=== PATIENT | male | born 1985 | race Caucasian/White ===

== ENCOUNTER 2022-08-17 00:08 | Emergency (ER) | payer MEDICAID, SELFPAY ==
[2022-08-17 00:19] VITALS: BP 129/89; PULSE 63; RESP 17; TEMP 36.7; O2SAT 98; BMI 29.0
[2022-08-17 02:57] VITALS: BP 131/86; PULSE 59; RESP 19; TEMP 36.6; O2SAT 98
--- NOTE | 2022-08-17 04:56 | ED.DENTAL ---
HPI - Dental/Oral General Chief complaint: Dental/Oral Stated complaint: right sided pain in face Time Seen by Provider: 08/17/22 03:02 Source: patient Mode of arrival: ambulatory History of Present Illness HPI Narrative: 36-year-old male with worsening right lower tooth pain and noted lower jaw swelling without difficulty in breathing or swallowing. Teeth map: 1. Broken cap Related Data Previous Rx's Medication Instructions Recorded amoxicillin 875 mg-potassium 1 tab PO Q12H 7 days #14 tabs 08/17/22 clavulanate 125 mg tablet ketorolac 10 mg tablet 10 mg PO Q6H PRN pain 5 days #20 08/17/22 tabs Allergies Allergy/AdvReac Type Severity Reaction Status Date / Time No Known Allergies Allergy Verified 08/17/22 00:24 Review of Systems Review of Systems: Pertinent positives and negatives as stated in HPI 10 point review of systems is otherwise negative. PMFSH Past Medical History Source: nursing notes reviewed Social History Social History Advance Directives: No Physical Exam Vital Signs: Vital Signs: Last Vital Signs Temp 97.8 F 08/17/22 02:57 Pulse 59 08/17/22 02:57 Resp 19 08/17/22 02:57 BP 131/86 08/17/22 02:57 Pulse Ox 98 08/17/22 02:57 O2 Del Method 08/17/22 02:57 BMI result Body Mass Index 29.0 VITAL SIGNS: Reviewed. GENERAL: Well developed, well nourished, in no acute distress. HEAD: Normocephalic/atraumatic EYES: PERRLA, EOMI EARS: Ext canals without abnormality OROPHARYNX: no oral lesions noted, posterior pharynx clear, no trismus, noted broken cap at the right lower molar likely has food stuck under it with noted lower right jaw swelling but no erythema or induration or fluctuance noted LUNGS: Normal breath sounds. No adventitious sounds or accessory muscle use. SpO2<98> CARDIOVASCULAR: Regular rate and rhythm without noted murmurs ABDOMEN: Soft, non-tender, non-distended with bowel sounds. MUSCULOSKELETAL: No tenderness, deformities, or effusions noted on gross inspection. EXTREMITIES: No cyanosis, clubbing or edema. SKIN: Inspection of the skin reveals no rashes NEUROLOGIC: Alert and oriented x 4. Strength and sensation to light touch were grossly intact x 4. Course Course Course Narrative: 36-year-old male with history and clinical presentation consistent with tooth infection and likely swelling without abscess. Patient was given initial analgesics as well as antibiotics to include topical anesthetic and will be discharged home in stable condition. Discharge Plan Discharge Clinical Impression: Toothache, Infection of tooth Patient Disposition: Home, Self-Care Instructions: Dental Abscess (ED), Toothache (ED) Additional Instructions: 1. Complete the entire course of antibiotics as ordered. 2. Tylenol 1000 mg, orally, every 6 hours as needed for pain control. Do not exceed 4000 mg within 24 hours. 3. Apply ice to unexposed skin for 5-10 minutes, 3 times a day. 4. Follow-up with a dentist at your earliest convenience. Return to the ER for worsening symptoms. Prescriptions: New amoxicillin-pot clavulanate 875-125 mg tablet 1 tab PO Q12H 7 Days Qty: 14 0RF ketorolac 10 mg tablet 10 mg PO Q6H PRN (Reason: pain) 5 Days Qty: 20 0RF Rx Instructions: 1. Patient received Toradol in the emergency room.
[2022-08-17] MEDS: Amoxicillin/Potassium Clav 875 MG TABLET PO (05:09)
[2022-08-17] MEDS: Acetaminophen 325 MG TABLET 975 MG PO (05:09)
[2022-08-17] MEDS: Ketorolac Tromethamine 15 MG/ML VIAL IM (05:09)
--- NOTE | 2022-08-17 05:17 | PC.NURSE ---
Pt. c/o mouth pain at 10/10. Swelling is present on the right side of the mouth. Pt. resting in bed. Pt. medicated per DEC and then D/C'd to home.
== END 2022-08-17 05:19 | disposition home or self-care (01) ==
PROVIDERS: Emergency Provider Student in an Organized Health Care Education/Training Program
DX: K04.7 Periapical abscess without sinus (principal); K08.89 Other specified disorders of teeth and supporting structures
CPT/HCPCS: 96372; 99283; 99284; J1885